=== PATIENT | male | born 1935 | race Caucasian/White ===

== ENCOUNTER → 2016-07-09 | Outpatient (CLI) | payer MEDICARE ==
[~2016-07-09] MED LIST: ALBU10PO PO; DILT180C PO; DILT240C77 PO; GABA-827 PO; GABA300C10 PO; IPRA30SP2 PO; MULT-717 PO; OMEG1CAP94 PO
== END | disposition home or self-care (01) ==
LOC: CFH 10:43
PROVIDERS: ATTEND Family Medicine
DX: Z13.820 Encounter for screening for osteoporosis (principal); Z12.89 Encounter for screening for malignant neoplasm of other sites; M85.89 Other specified disorders of bone density and structure, multiple sites; M81.0 Age-related osteoporosis without current pathological fracture; I10 Essential (primary) hypertension; J44.9 Chronic obstructive pulmonary disease, unspecified; R80.8 Other proteinuria
CPT/HCPCS: 77080

== ENCOUNTER → 2016-11-11 | Outpatient (CLI) | payer MEDICARE | END | disposition home or self-care (01) | LOC: CFH 09:05 | PROVIDERS: ATTEND Internal Medicine Nephrology | DX: N28.1 Cyst of kidney, acquired (principal); I71.4 Abdominal aortic aneurysm, without rupture; N18.3 Chronic kidney disease, stage 3 (moderate) | CPT/HCPCS: 76770 ==

== ENCOUNTER → 2018-05-03 | Outpatient (CLI) | payer MEDICARE | END | disposition home or self-care (01) | LOC: CFH 12:09 | PROVIDERS: ATTEND Internal Medicine | DX: J44.9 Chronic obstructive pulmonary disease, unspecified (principal) | CPT/HCPCS: 71046 ==